=== PATIENT | male | born 1970 | race Caucasian/White ===

== ENCOUNTER → 2018-06-21 | Outpatient (CLI) | payer BC ==
--- NOTE | 2018-06-21 14:38 | CT ---
EXAMINATION TYPE: CT sinus wo con DATE OF EXAM: 06/21/2018 COMPARISON: NONE HISTORY: loss of smell per patient. Chronic sinusitis per order. CT DLP: 621 mGycm. Automated Exposure Control for Dose Reduction was Utilized. TECHNIQUE: CT scan of the sinuses is performed without contrast, axial images are obtained, coronal r eformatted images are also reviewed. FINDINGS: Mild to moderate mucosal thickening in the inferior aspect both maxillary sinuses is presen t. There is moderate mucosal thickening involving ethmoid sinuses with patchy opacity also seen anter iorly. There is moderate inferior mucosal thickening in the left frontal sinus and mild mucosal thic kening inferior right frontal sinus. There is mild to moderate mucosal thickening involving bilateral sphenoid sinuses with patchy opacification in the larger left maxillary sinus along right aspect. Th e ostiomeatal complex is occluded bilaterally on the coronal images. Nasal septum is deviated to righ t of midline. Visualized portion of mastoid air cells show no abnormal opacification. The globes are intact bilate rally. A 1.5 cm sclerotic lesion seen right mandibular condyle. IMPRESSION: 1. Acute on chronic paranasal sinus disease as detailed above. 2. Nonspecific 1.5 cm sclerotic lesion right mandibular condyle favored nonaggressive etiology such a s benign fibro-osseous lesion. Sclerotic metastatic disease felt much less likely, consider correlati ng with PSA value.
== END | disposition home or self-care (01) ==
LOC: RADCTMAIN 13:48
PROVIDERS: ATTEND Otolaryngology
DX: J01.40 Acute pansinusitis, unspecified (principal); L98.9 Disorder of the skin and subcutaneous tissue, unspecified
CPT/HCPCS: 70486

== ENCOUNTER → 2022-03-18 | Outpatient (CLI) | payer BC ==
--- NOTE | 2022-03-18 16:24 | P.SLEEP ---
History of Present Illness H&P Date: 03/18/22 51-year-old male patient is being seen for concerns of obstructive sleep apnea. The patient has loud snoring and has been told by his that he quits breathing at night. Has a chronic septal nasal deviation. He has history of grinding of his teeth. He goes to bed around midnight and he wakes at 7:00 in the morning. He feels tired and sleepy during the day. His current [place] score is is 12. The patient is currently working as a distribution a class lineman for [employer] and he gets cold a lot which obviously disrupts his sleep. Sometimes, the patient does 16 hour shifts and 24 hours shifts which obviously impairs his sleep. If the patient is given the chance to sleep, he sleeps between midnight and 7:00 in the morning. No recent weight gain. No alcoholism. No substance abuse. No insomnia. Denies waking up choking or gasping for air. At times he wakes up in the middle of the night to urinate. He is currently trying to lose weight and currently he weighs around 135 pounds and has lost around 10 pounds. His [place] score is at 12. No other major medical problems and comorbidities. Review of Systems Constitutional: Reports daytime sleepiness, Reports fatigue, Reports weight gain, Reports weight loss Eyes: denies as per HPI, denies blurred vision, denies bulging eye, denies decreased vision, denies diplopia, denies discharge, denies dry eye, denies irritation, denies itching, denies pain, denies photophobia, denies loss of peripheral vision, denies loss of vision, denies tunnel vision/blind spots Ears: deny: decreased hearing, ear discharge, earache, tinnitus Ears, nose, mouth and throat: Reports as per HPI Breasts: absent: as per HPI, gynecomastia Cardiovascular: Reports as per HPI Respiratory: Reports snoring Gastrointestinal: Reports as per HPI Genitourinary: Reports as per HPI Musculoskeletal: Reports as per HPI Musculoskeletal: absent: ankle pain, ankle stiffness, ankle swelling, as per HPI, elbow pain, elbow stiffness, elbow swelling, foot pain, foot stiffness, foot swelling, hand pain, hand stiffness, hand swelling, hip pain, hip stiffness, hip swelling, knee pain, knee stiffness, knee swelling, shoulder pain, shoulder stiffness, shoulder swelling, wrist pain, wrist stiffness, wrist swelling Integumentary: Reports as per HPI Neurological: Reports as per HPI Psychiatric: Reports as per HPI Endocrine: Reports as per HPI Hematologic/Lymphatic: Reports as per HPI Allergic/Immunologic: Reports as per HPI Past Medical History Past Medical History: No Reported History History of Any Multi-Drug Resistant Organisms: None Reported Additional Past Surgical History / Comment(s): carpal tunnel L hand Past Psychological History: No Psychological Hx Reported Past Drug Use History: None Reported Medications and Allergies Home Medications Medication Instructions Recorded Confirmed Type Cyclobenzaprine [Flexeril] 10 mg PO TID PRN #15 tab 04/30/15 Rx Hydrocodone/Acetaminophen [[place] 1 each PO Q6HR PRN #20 tab 04/30/15 Rx 5-325] methylPREDNISolone [Medrol] 1 pack PO DIRECTED #1 tab.ds.pk 04/30/15 Rx Allergies Allergy/AdvReac Type Severity Reaction Status Date / Time No Known Allergies Allergy Verified 04/30/15 10:41 Physical Exam Vitals: BP is 129/80 with a pulse of 54 and respiration of 16 with a temperature of 97.3 and the patient has a pulse ox of 95% on room air oxygen. Neck size is 18 inches and the patient has an [place] score of 12.. The patient a body mass index of 35.2. Weight is 235 pounds. The patient appeared well nourished and normally developed. Vital signs as documented. Head exam is unremarkable. No scleral icterus or corneal arcus noted. Neck is without jugular venous distension, thyromegaly, or carotid bruits. Carotid upstrokes are brisk bilaterally. Lungs are clear to auscultation and percussion. Cardiac exam reveals the PMI to be normally sized and situated. Rhythm is regular. First and second heart sounds normal. No murmurs, rubs or gallops. Abdominal exam reveals normal bowel sounds, no masses, no organomegaly and no aortic enlargement. Extremities are nonedematous and both femoral and pedal pulses are normal.Examination of the skin revealed no evidence of significant rashes, suspicious appearing nevi or other concerning lesions.Neurologically, the patient is awake and alert and the patient does not have any focal neurological deficit. Cranial nerves are essentially intact. Assessment and Plan Plan: Chronic hypersomnia with concerns of sleep apnea. [place] scores a 12 Loud snoring and reported witnessed apneas Grinding of the teeth Possible insufficient sleep syndrome due to his job schedule with DVT. Plan Extend the sleep hours and average 7-8 hours of sleep if possible. The patient sleep hygiene measures are in general good and I feel that there is a component of insufficient sleep syndrome We'll do a home sleep study to rule out possibility of obstructive sleep apnea Encourage further weight loss as the patient is or the lost around 10 pounds We'll continue to follow. We'll do a home sleep study and will make further recommendations based on the results of the sleep study. Sleep Note - Sleep Note Sleep Note: Temperature: Pulse Rate: Respiratory Rate: Blood Pressure: SpO2: Height: Weight: BMI: Neck Circumference:
== END ==
LOC: SLEEP 14:34
PROVIDERS: ATTEND Internal Medicine Critical Care Medicine
DX: G47.10 Hypersomnia, unspecified (principal); G47.63 Sleep related bruxism; G47.30 Sleep apnea, unspecified
CPT/HCPCS: 99202